=== PATIENT | female | born 1955 | race Caucasian/White ===

== ENCOUNTER → 2017-01-04 | Outpatient (CLI) | payer BC ==
[~2017-01-04] MED LIST: ASPIRIN PO; BACITRACIN30 GM TOP; CERTAGEN PO; COLACE PO; FISH OIL 1,0001 CAP PO; GLUCOSAMINE
--- NOTE | ~2017-01-04 | BD1 ---
[facility] A Service of [facility] & [facility] RADIOLOGY TEXT RESULTS PATIENT: CHUCK LUNDY LOCATION: [facility] : 51 UNIT #: [id number] AGE: [address]: Lamar Claros APRN SEX: F ORDER DR: [id number] [address] [address] [id number] O MR#: [id number] Acc #: [id number] NAME: CHUCK LUNDY : 1955 SEX: F STUDY DATE/TIME: 01/04/2017 13:58 UNIT: [facility] ROOM: STUDY DESCRIPTION: BD Dexa Bone Dens 1+ Site Attending Physician: Lamar Claros A.P.R.N. Referring Physician: Lamar Claros A.P.R.N. Ordering Physician: Lamar Claros A.P.R.N. Primary Care Physician: Gogo Primary Care Physician MEDICAL IMAGING REPORT This report is preliminary unless electronic signature is present. EXAM DXA scan 01/04/2017 HISTORY Status post menopause with no hormone replacement therapy. Osteopenia. Smoking history. FINDINGS Bone mineral density in the lumbar spine from L1-L4 was 1.041 g/cm2 which is 1.2 standard deviations below the mean when compared to the young adult reference population which is characteristic of osteopenia. This is 0.5 standard deviations below the mean when compared to the age-matched population. Bone mineral density in the left femoral neck was 0.935 g/cm2 which is 0.7 standard deviations below the mean when compared to the young adult reference population which is within the range of normal. This is 0.1 standard deviations above the mean when compared to the age-matched population. Bone mineral density in the right femoral neck was 0.918 g/cm2 which is 0.9 standard deviations below the mean when compared to the young adult reference population which is within the range of normal. This is 0 standard deviations from mean when compared to the age-matched population. IMPRESSION Bone mineral density in the lumbar spine characteristic of osteopenia and within the hips bilaterally within the range of normal. Dictated by... Ramon Elder M.D. THIS IS AN ELECTRONICALLY VERIFIED REPORT Ramon Elder M.D. at 01/06/2017 8:16 AM ADELA/otilia [facility] A Service of [facility] & [facility] RADIOLOGY TEXT RESULTS PATIENT: HCUCK LUNDY LOCATION: [facility] : 51 UNIT #: [id number] AGE: [address]: Lamar Claros APRN SEX: F ORDER DR: TD: 01/04/2017 16:16 JOB #: [id number] MEDICAL IMAGING REPORT Page 1 of 1
--- NOTE | ~2017-01-04 | MY11 ---
[facility] A Service of [facility] RADIOLOGY TEXT RESULTS PATIENT: CHUCK LUNDY LOCATION: [facility] : 51 UNIT #: [id number] AGE: [address]: Lamar Claros APRN SEX: F ORDER DR: [id number] [address] [address] [id number] O MR#: [id number] Acc #: [id number] NAME: CHUCK LUNDY : 1955 SEX: F STUDY DATE/TIME: 01/04/2017 13:50 UNIT: [facility] ROOM: STUDY DESCRIPTION: MY Mammogram Screening Dig Mamadou Attending Physician: Lamar Claros A.P.R.N. Referring Physician: Lamar Claros A.P.R.N. Ordering Physician: Lamar Claros A.P.R.N. Primary Care Physician: Primary Care Physician No MEDICAL IMAGING REPORT This report is preliminary unless electronic signature is present. EXAM Bilateral digital screening mammogram with CAD COMPARISON June 22, 2005 INDICATIONS Breast cancer screening. 61-year-old asymptomatic female who reports a maternal grandmother and an aunt and a cousin with breast cancer. FINDINGS There are scattered fibroglandular densities. Sternalis muscle is incompletely imaged in the medial posterior third of the right breast, only seen on CC view. This is a normal anatomic variant. There are no suspicious findings in either breast. IMPRESSION No mammographic evidence of malignancy. Continued annual screening mammography and clinical breast exam are recommended. Patients over the age of 40 are entered into a reminder system with target due date for the next mammogram. A result letter will also be sent to the patient. BIRADS: 2 Benign Finding Dictated by... Moisés Steel M.D. THIS IS AN ELECTRONICALLY VERIFIED REPORT [facility] A Service of [facility] RADIOLOGY TEXT RESULTS PATIENT: CHUCK LUNDY LOCATION: [facility] : 51 UNIT #: [id number] AGE: [address]: Lamar Claros APRN SEX: F ORDER DR: Moisés Steel M.D. at 01/06/2017 10:40 AM ROSALIA/adrien TD: 01/04/2017 20:34 JOB #: [id number] MEDICAL IMAGING REPORT Page 1 of 1
== END | disposition home or self-care (01) ==
LOC: SMAM 13:07
DX: Z12.31 Encounter for screening mammogram for malignant neoplasm of breast (principal); Z13.820 Encounter for screening for osteoporosis; Z80.3 Family history of malignant neoplasm of breast; Z78.0 Asymptomatic menopausal state
CPT/HCPCS: 77080; G0202